=== PATIENT | female | born 1970 | race Caucasian/White ===

== ENCOUNTER 2023-05-14 19:32 | Emergency (ER) | payer OTHER ==
[~2023-05-14] VITALS: Ht 167.6 cm; Wt 99.8 kg
[~2023-05-14 19:32] MED LIST: CETI-80 PO; LEVO137T20 PO; TRIA1TAB98 PO
[2023-05-14 19:40] VITALS: BP_SYST 160; PULSE 83; RESP 17; TEMP 97.5; O2SAT 99
[2023-05-14] MEDS ORDERED: IBUPROFEN 600 MG TABLET PO ONE (20:00)
[2023-05-14] MEDS ORDERED: DICL50TA9 PO (21:13)
[2023-05-14 21:34] VITALS: BP_SYST 133; PULSE 96; RESP 20; TEMP 98.6; O2SAT 100
== END 2023-05-14 21:34 | disposition home or self-care (01) ==
LOC: SED 19:32
DX: S52.612A Displaced fracture of left ulna styloid process, initial encounter for closed fracture (principal); J45.909 Unspecified asthma, uncomplicated; I10 Essential (primary) hypertension; Z88.1 Allergy status to other antibiotic agents; Z88.5 Allergy status to narcotic agent; Z88.6 Allergy status to analgesic agent; Z79.899 Other long term (current) drug therapy; X58.XXXA Exposure to other specified factors, initial encounter; Y93.89 Activity, other specified; Y92.89 Other specified places as the place of occurrence of the external cause; Y99.8 Other external cause status
CPT/HCPCS: 73090; 99284